=== PATIENT | male | born 2000 | race Caucasian/White ===

== ENCOUNTER 2023-12-04 08:52 | Emergency (ER) | payer OTHER, SELFPAY ==
[2023-12-04 09:03] VITALS: BP 125/75; PULSE 53; RESP 16; TEMP 36.6; O2SAT 100
--- NOTE | 2023-12-04 09:03 | ED_ITS ---
HPI - Skin/Abscess/Foreign Bdy General Chief complaint: Skin/Abscess/Foreign Body Stated complaint: Rash Time Seen by Provider: 12/04/23 09:14 Source: patient, RN notes reviewed and old records reviewed Mode of arrival: ambulatory Limitations: no limitations History of Present Illness HPI narrative: 23 year old male presents to [facility] care with complaints of rash to face neck and to bilateral arms and legs which started yesterday. Patient reports that he attended a bonfire on night and awoke with rash on Wednesday. Patient has rash on face with right upper eyelid swollen, right neck, bilateral arms and legs with rash red slightly raised and itchy. Patient reports that he has been taking oral Benadryl for the itching and some Ibuprofen and has taken cool showers. Patient denies any visual difficulty no trouble with his swallowing or with his breathing with SAO2 100% on room air MD complaint: rash Onset (ago): day(s) (2) Tetanus up to date: yes Location: generalized Severity: moderate Quality: pruritic Treatments prior to arrival: Benadryl and NSAID Related Data Allergies Allergy/AdvReac Type Severity Reaction Status Date / Time No Known Allergies Allergy Mild Verified 12/04/23 09:05 Review of Systems Review of Systems: CONSTITUTIONAL: Denies fever, chills, or sweats. CARDIOVASCULAR: Denies chest pain, palpitations, or edema. RESPIRATORY: Denies cough or dyspnea. SKIN: Reports red slightly raised rash on neck, face, bilateral arms and legs since Wednesday which is itchy MUSCULOSKELETAL: Denies joint pain or myalgia. NEUROLOGIC: Denies headache, numbness, or weakness. All systems reviewed & are unremarkable except as noted in HPI and below PMFSH Past Medical History Medical History (Updated 12/05/23 @ 09:24 by Lisa Lanier NP) COVID-19 Ear infection Pneumonia Strep throat Social History Social History (Updated 12/05/23 @ 09:19 by Lisa Lanier NP) Smoking status: Never smoker Alcohol intake: current Alcohol use details: social Substance use type: does not use Living arrangements: with family Gender identity (if verbalized by the patient): Male Comments At time of signature, agree with nursing past medical, surgical, social and family history. There is no relevant family history pertinent to the presenting complaint Exam Narrative: GENERAL: Well-appearing, well-nourished, and in no acute distress. HEAD: Normocephalic, atraumatic. EYES: PERRLA, conjunctivae clear, and EOMI.swelling to the right eyelid with rash to face ENT: Mucous membranes moist. Oropharynx without edema, erythema or lesions. NECK: Supple. No lymphadenopathy rash to right side of neck CHEST: Clear to auscultation. No respiratory distress.SAO2 100% on room air HEART: Regular rate and rhythm. SKIN: Warm, dry.? Patches of red scattered minimal raised rash which is itchy on face neck and on all extremities NEURO:? Alert and oriented x3. PSYCH: Normal mood and affect Course Course Emergency Course: Patient is aware of diagnosis, understands and agrees to treatment plan.? Anticipatory guidance given.? Patient agrees to follow-up as directed and is aware of reasons to seek care at the emergency department. Portions of this record may have been created with voice recognition software Level of Care: Express Care Visit Vital Signs Vital signs: Vital Signs Temperature 36.6 C 12/04/23 09:03 Pulse Rate 53 L 12/04/23 09:03 Respiratory Rate 16 12/04/23 09:03 Blood Pressure 125/75 12/04/23 09:03 Pulse Oximetry 100 12/04/23 09:03 Oxygen Delivery Room Air 12/04/23 09:03 Temperature 36.6 C 12/04/23 09:03 Pulse Rate 53 L 12/04/23 09:03 Respiratory Rate 16 12/04/23 09:03 Blood Pressure 125/75 12/04/23 09:03 Pulse Oximetry 100 12/04/23 09:03 Oxygen Delivery Room Air 12/04/23 09:03 Reviewed MDM - Skin/Abscess/Foreign Bdy MDM Narrative Medical decision making narrative: Does not appear at this time to be erythema multiforme, bullous, SJS, TEN; no evidence at this time to suggest RMSF, endocarditis or Lyme disease; patient looks well, nontoxic and is tolerating oral intake; no neurologic signs or symptoms; no headache, photophobia or neck pain; afebrile; appropriate for initial outpatient treatment; discussed the importance of follow-up, patient agrees; question, viral exanthema, contact dermatitis, allergic dermatitis, eczema, urticaria. No soft palate or uvula edema, no tongue, lip edema or other mucosal involvement, no respiratory compromise, no stridor, no wheezing, no wheezing, no history of syncope, no hypotension, no nausea, vomiting, or diarrhea.? Instructed patient to go to nearest ER immediately for any worsening symptoms including but not limited to: fever, spreading rash, pain, sore throat, headache, dizziness, chest pain, trouble breathing, or any symptoms concerning to the patient. Patient received injection of Depo-Medrol 80 mg IM while in clinic with no reaction noted. Differential Diagnosis Differential diagnosis: Likely abscess of skin or subcutaneous tissue, viral exanthem, urticaria, cellulitis, contact dermatitis and other (poison meg) Medical Records Attestation: I reviewed the patient's medical records. Critical Care Time Critical Care Time Critical Care Time: No Discharge Plan Discharge Clinical Impression: Contact dermatitis Patient Disposition: Home, Self-Care Condition: Stable Instructions: Antibiotic Form, Poison Meg (ED) Additional Instructions: Apply triamcinolone ointment to rash twice daily never used to face Hydrocortisone ointment OTC for face watch for any infection--redness, swelling, drainage, fever Tylenol or Ibuprofen for any fever or pain Benadryl 25-50 mg every 6 hours for itching do note drive or operate machinery while taking Zyrtec or Claritin daily for next 10 days Pepcid 20 mg daily for 10 days. follow up with PCP in 7-10 days for a wound check recheck if develop fever, chills, increasing symptom Go to the ER if your symptoms become worse of if ANY new symptoms develop Steroid taper as prescribed complete all doses take with food If your symptoms persist, change or worsen significantly before you can contact your personal physician then please, without delay, go to the emergency department for further evaluation. Follow-up with PCP in 7-10 days or sooner if needed Follow up with PCP soon in regards to your blood pressure which is elevated above threshold for referral. Blood pressure above 120/80 may indicate pre- hypertension. Minimal systolic elevation 125/75 Prescriptions: New triamcinolone acetonide 0.1 % ointment 1 applic topical BID Qty: 80 0RF Rx Instructions: Apply to rash up to twice daily never apply to the face prednisone 10 mg tablet 10 mg PO DIRECTED Qty: 42 0RF Rx Instructions: see taper instructions 6 tabs daily x2 days, 5 tabs daily for 2 days, 4 tabs daily for 2 days, 3 tabs daily for 2 days, 2 tabs daily for 2 days, then 1 tab daily x2 days Take with food best taken in a.m. famotidine [Pepcid] 20 mg tablet 20 mg PO DAILY Qty: 14 0RF Follow-up/Referrals: PHYSICIAN,ENTRY LEVEL MANAGER [Primary Care Provider] - Time of Disposition: 09:50 Quality Chuck Coma Scale Eyes: Open Verbal: Oriented and Alert Motor: Follows Commands Stuart Coma Total Score: 15
[2023-12-04] MEDS: methylPREDNISolone ACETATE 80 MG/ML VIAL IM (09:29)
== END 2023-12-04 09:52 | disposition home or self-care (01) ==
PROVIDERS: Emergency Provider Registered Nurse
DX: L25.9 Unspecified contact dermatitis, unspecified cause (principal); Z86.16 Personal history of COVID-19
CPT/HCPCS: 96372; 99213; G0463; J1010